=== PATIENT | male | born 1995 | race Caucasian/White ===

== ENCOUNTER 2017-01-14 09:38 | Emergency (ER) | payer OTHER ==
[2017-01-14 09:47] VITALS: TEMP 98.4
--- NOTE | 2017-01-14 10:13 | EDPHY ---
General - History Smoking Status: Current every day smoker Narrative: The patient was evaluated and managed by the physician's assistant corporate controller. My cosignature indicates that I reviewed the chart and I agree with the findings and plan of care as documented. I am the secondary supervising physician. ( Moni Sullivan) CHIEF COMPLAINT: right ankle pain, fracture HISTORY OF PRESENT ILLNESS: patient was drinking last night and does not remember the exact details of what happened but awoke to severe pain in the right ankle this morning. This severe pain on both the medial and lateral aspects of the right ankle. Radiates up into the garcia. Unable to bear weight on it. He has no recollection of any of the events. It is worse if he tries to move or put weight on it. Minimal improvement at rest. He does not have any pain anywhere else. No other associated complaints or modifying factors. Patient is from [place], [place] and has an orthopedist there but no orthopedist here. ESTABLISHED ORTHOPEDIST: Uncertain of the name, the practice in [place], [place] REVIEW OF SYSTEMS: Ten systems reviewed and are negative unless otherwise noted in the HPI EXAMINATION General Appearance: Alert, no distress Cardiovascular: Pulses normal throughout. symmetric DP pulses are 2+. Symmetric PT pulses at 2+.Brisk cap refill Neurological: A&O, sensory symmetric, strength symmetric In both arms. Strength is 5/5 in the left leg. Strength not tested in the right leg due to fracture present Skin: Warm and dry, no rash. No fracture blisters. No lacerations or abrasions. There is ecchymosis bilaterally on the ankle Extremities: significant tenderness to palpation on the right ankle bilaterally. Mild tenderness to the garcia. No tenderness of the proximal fibula. No tenderness of the right calcaneus or midfoot. Range of motion not tested secondary to splint and known fracture. Range of motion of the left leg and both arms fully intact. Psychiatric: Mood and affect normal DIFFERENTIAL DIAGNOSES: Including but not limited to Bimalleolar fracture, trimalleolar fracture, distal tibial fracture, sprain, strain MDM: 10:10 a.m. right ankle fracture. The patient is uncertain exactly what happened last night but awoke with severe ankle pain this morning. [facility] and diagnosed with ankle fracture. He does not know the details. He does arrive with a disc and we will import this for further evaluation. He is NPO since 7:00 p.m. last night of solids. He did have a small glass of water this morning about 2 hours ago 11:00 a.m. right-sided bimalleolar fracture. No posterior malleolus involvement. No dislocation. He is neurovascular intact. We will provide a more robust, posterior splint with stirrup. He already has crutches from [facility] today. I contacted the on-call orthopedist and they arranged for him to see either ankle specialist in the morning at a.m., Dr. Nava. I informed the patient of this. However he has spoken with his mother back in [place], and they are likely to follow up with his established surgeon there is he is on spring. He will contact the way office of Dr. Nava should he change his mind and want to be seen there. He is discharged home with crutches, strict nonweightbearing instructions, pain medication, instructions to elevate the leg, and anti-inflammatory instructions. He is to return to the ER for any falls on the leg, worsening pain, numbness or tingling. I also discussed this plan with his mother on face-time. He is discharged home in stable condition and neurovascular intact after the placement of the splint. ED Precautions: Worsening pain. Erythema, edema, cyanosis, pallor, paresthesia or anesthesia. SUPERVISION: This patient was independently evaluated without the aide of supervising physician. (Finn Manriquez) - Objective Vital Signs: Initial Vital Signs Temperature (C) 98.4 F 01/14/17 09:45 Heart Rate 92 01/14/17 09:45 Respiratory Rate 17 01/14/17 09:45 Blood Pressure 131/77 H 01/14/17 09:45 O2 Sat (%) 96 01/14/17 09:45 O2 Delivery Mode Room Air Allergies/Adverse Reactions: No Known Allergies Allergy (Unverified 01/14/17 09:44) Home Medications: Medication Instructions Recorded oxyCODONE HCL/ACETAMINOPHEN 1 each PO Q4-6PRN PRN #15 tablet 01/14/17 [Percocet 5-325 mg Tablet] Medications Given: Discontinued Medications Ibuprofen (Motrin) 600 mg PO EDNOW ONE Stop: 01/14/17 11:00 Last Admin: 01/14/17 11:02 Dose: 600 mg Oxycodone/Acetaminophen (Percocet 5/325) 1 tab PO EDNOW ONE Stop: 01/14/17 11:00 Last Admin: 01/14/17 11:02 Dose: 1 tab Departure - Departure Disposition: Home, Routine, Self-Care Clinical Impression: Bimalleolar fracture of right ankle Qualifiers: Encounter type: initial encounter Fracture type: closed Qualified Code(s): S82.841A - Displaced bimalleolar fracture of right lower leg, initial encounter for closed fracture Condition: Good Instructions: Ankle Fracture (ED) Additional Instructions: Non weight-bearing, crutches only. Elevate the leg. Ice 20 on 20 off. Prescription medications for pain as needed with caution. Follow up with our established orthopedist or yours back home should do choose to do so. Return to ER for worsening pain, numbness, tingling are increasing the swelling Referrals: Erik Nava MD [Medical Doctor] - As per Instructions Stand Alone Forms: School Excuse, Statement of Treatment Prescriptions: oxyCODONE HCL/ACETAMINOPHEN [Percocet 5-325 mg Tablet] 1 each PO Q4-6PRN PRN # 15 tablet PRN Reason: Pain, Breakthrough
[2017-01-14] MEDS ORDERED: IBUPROFEN 600 MG TAB PO ONE (10:59)
[2017-01-14] MEDS ORDERED: OXYCODONE/APAP 5/325 TAB PO ONE (10:59)
[2017-01-14 11:32] VITALS: BP 125/66; PULSE 80; RESP 16; O2SAT 93
== END 2017-01-14 11:30 | disposition home or self-care (01) ==
DX: S82.841A Displaced bimalleolar fracture of right lower leg, initial encounter for closed fracture (principal); F17.200 Nicotine dependence, unspecified, uncomplicated; X58.XXXA Exposure to other specified factors, initial encounter; Y93.89 Activity, other specified